=== PATIENT | female | born 1965 | race Caucasian/White ===

== ENCOUNTER 2017-09-19 13:08 | Outpatient (CLI) | payer OTHER | END 2017-09-19 13:09 | disposition home or self-care (01) | LOC: SC 13:08 | PROVIDERS: ATTEND Internal Medicine Pulmonary Disease | DX: G47.33 Obstructive sleep apnea (adult) (pediatric) (principal) | CPT/HCPCS: 99203; 99212 ==

== ENCOUNTER 2017-10-24 13:06 | Outpatient (CLI) | payer OTHER | END 2017-10-24 13:07 | disposition home or self-care (01) | LOC: SC 13:06 | PROVIDERS: ATTEND Internal Medicine Pulmonary Disease | DX: G47.33 Obstructive sleep apnea (adult) (pediatric) (principal) | CPT/HCPCS: 99212; 99213 ==

== ENCOUNTER 2017-11-24 13:02 | Outpatient (CLI) | payer OTHER | END 2017-11-24 13:03 | disposition home or self-care (01) | LOC: SC 13:02 | PROVIDERS: ATTEND Internal Medicine Pulmonary Disease | DX: G47.33 Obstructive sleep apnea (adult) (pediatric) (principal) | CPT/HCPCS: 99212; 99213 ==

== ENCOUNTER 2017-12-27 14:07 | Outpatient (CLI) | payer OTHER | END 2017-12-27 14:08 | disposition home or self-care (01) | LOC: SC 14:07 | PROVIDERS: ATTEND Internal Medicine Pulmonary Disease | DX: G47.33 Obstructive sleep apnea (adult) (pediatric) (principal) | CPT/HCPCS: 99212; 99213 ==

== ENCOUNTER 2018-06-20 15:43 | Emergency (ER) | payer OTHER ==
[2018-06-20 18:48] VITALS: BP 120/84
[2018-06-20] MEDS ORDERED: DOXYCYCLINE 100 MG TABLET PO STA (19:01)
[2018-06-20] MEDS ORDERED: predniSONE 20 MG TABLET PO STA (19:01)
--- NOTE | 2018-06-20 19:14 | ED Physician Documentation ---
History of Present Illness - Stated complaint Stated Complaint: FEVER/COUGH/SPENCER - Chief complaint Chief Complaint: General - Additonal information Additional information: 52-year-old female presents the emergency department for evaluation of sinus pressure, nasal congestion, chills, generally feeling unwell for the past several weeks. The patient had increasing symptoms and now has sinus pressure nasal congestion, postnasal drip and cough. No relieving factors. No other associated symptoms. 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 - Present Medications Home Medications: Ambulatory Orders Medication Instructions Recorded Confirmed Doxycycline Hyclate 100 mg PO BID #20 capsule 06/20/18 predniSONE [Prednisone] 40 mg PO DAILY #10 tablet 06/20/18 - Allergies Allergies/Adverse Reactions: Allergies Allergy/AdvReac Type Severity Reaction Status Date / Time amoxicillin Allergy Rash Verified 06/20/18 16:19 bupropion [From Wellbutrin] Allergy Anaphylaxis Verified 06/20/18 16:19 dihydroergotamine Allergy Anaphylaxis Verified 06/20/18 16:19 [From Migranal] sumatriptan [From Imitrex] Allergy Anaphylaxis Verified 06/20/18 16:19 zolmitriptan [From Zomig] Allergy Anaphylaxis Verified 06/20/18 16:19 - Social History Does the pt smoke?: No Smoking Status: Never smoker - Immunizations Immunizations are current?: Yes PD ED PE NORMAL - General General: Alert and oriented X 3, No acute distress - HEENT HEENT: Atraumatic, PERRL, EOMI, Ears normal - Neck Neck: Supple, no meningeal sign - Cardiac Cardiac: RRR, Strong equal pulses - Respiratory Respiratory: No respiratory distress, Clear bilaterally - Derm Derm: Normal color - Extremities Extremities: No deformity - Neuro Neuro: Alert and oriented X 3, Normal speech PD ED PE EXPANDED - HEENT HEENT: Right frontal sinus TTP, Left frontal sinus TTP, Nasal congestion. No: Right nares epsitaxis, Left nares epistaxis Results - Vitals Vitals: Vital Signs - 24 hr 06/20/18 06/20/18 16:14 18:48 Temperature 36.7 C Heart Rate 90 86 Respiratory 16 16 Rate Blood Pressure 128/84 H 120/84 H O2 Saturation 99 99 Oxygen O2 Source Room air - Labs Labs: Laboratory Tests 06/20/18 17:54 Influenza A (Rapid) Negative Influenza B (Rapid) Negative PD MEDICAL DECISION MAKING - ED course ED course: The patient's symptoms have been over 14 days, the patient will be treated with antibiotics for a bacterial sinusitis given the duration. Presently the patient appears appropriate for discharge and ongoing outpatient management. I discussed warning signs and recommended returning to the emergency department for any worsening or any concerns Departure - Departure Disposition: 01 Home, Self Care Clinical Impression: Acute sinusitis Qualifiers: Sinusitis location: other Recurrence: non-recurrent Qualified Code(s): J01.80 - Other acute sinusitis Condition: Good Instructions: ED Sinusitis Abx Tx Follow-Up: ANGELIQUE DE GUZMAN DO [Primary Care Provider] - Within 1 week Prescriptions: Doxycycline Hyclate 100 mg PO BID #20 capsule predniSONE [Prednisone] 40 mg PO DAILY #10 tablet Comments: Please return to the emergency department for any worsening or any concerns
== END 2018-06-20 19:43 | disposition home or self-care (01) ==
LOC: ED 15:43
DX: J01.80 Other acute sinusitis (principal)
CPT/HCPCS: 87275; 87276; 99283; A9270; J7512

== ENCOUNTER 2018-09-11 14:43 | Outpatient (CLI) | payer OTHER | END 2018-09-11 14:44 | disposition home or self-care (01) | LOC: SC 14:43 | PROVIDERS: ATTEND Internal Medicine Pulmonary Disease | DX: G47.33 Obstructive sleep apnea (adult) (pediatric) (principal) | CPT/HCPCS: 99212; 99213 ==

== ENCOUNTER 2018-09-15 14:10 | Emergency (ER) | payer OTHER ==
[2018-09-15] MEDS ORDERED: HYDROmorphone 1 MG/ML CARPUJECT IM STA (16:09)
[2018-09-15] MEDS ORDERED: DEXAMETHASONE 10 MG/ML VIAL PO STA (16:10)
[2018-09-15] MEDS ORDERED: diazePAM INJ 5 MG/ML SYRINGE IM STA (16:10)
[2018-09-15] MEDS ORDERED: CHERRY SYRUP 10 ML UDC PO ONE (16:10)
--- NOTE | 2018-09-15 16:14 | ED Physician Documentation ---
PD HPI BACK INJURY - Stated complaint Stated Complaint: BACK PX - History obtained from History obtained from: Patient, Family () - History of Present Illness Location: Right, Lower Similar symptoms before: Diagnosis (spondylosis with L5 nerve root impingement.) - Additional information Additional information: Patient is a 52-year-old female with severe lower back pain radiating to her right leg. It has been waxing and waning for the past week but became much worse today. It is been similar to symptoms she has had in the past. She had an MRI of her lumbar spine in the past revealing spondylosis with L5 nerve root impingement. The last time her pain was this bad was 3 or 4 years ago. It has become worse recently due to lifting and bending while at work. She denies fever, urinary incontinence, numbness or weakness. She complains of severe lower back spasms. 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 : None HEENT: Chronic sinusitis Psych: Depression, Bipolar disorder, ADD/ADHD, Obsessive compulsive disorder Musculoskeletal: Fibromyalgia, Osteoporosis, Other Derm: Herpes zoster, Rosacea, Other Other Past Medical History: spondylolithesis, skin cancer - Past Surgical History Past Surgical History: Yes General: Colonoscopy, EGD /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: section, Endometrial ablation, Dilation and currettage, Breast reduction, Breast implants, Other HEENT: Other Derm: Skin cancer surgery - Present Medications Home Medications: Ambulatory Orders Medication Instructions Recorded Confirmed ALPRAZolam [Alprazolam] 2 mg PO DAILY 09/15/18 09/15/18 Cyclobenzaprine [Flexeril] 1 tab PO QPM 09/15/18 09/15/18 Cyclobenzaprine [Flexeril] 10 mg PO TID PRN #20 tablet 09/15/18 Fluticasone [Flonase] 1 spray NS DAILY 09/15/18 09/15/18 Loratadine [Claritin] 10 mg PO DAILY 09/15/18 09/15/18 Montelukast [Singulair] 10 mg PO QPM 09/15/18 09/15/18 Oxycodone HCl/Acetaminophen 1 - 2 each PO Q6H PRN #14 tablet 09/15/18 [Percocet 5-325 mg Tablet] Sertraline [Zoloft] 100 mg PO DAILY 09/15/18 09/15/18 - Allergies Allergies/Adverse Reactions: Allergies Allergy/AdvReac Type Severity Reaction Status Date / Time amoxicillin Allergy Rash Verified 06/20/18 16:19 bupropion [From Wellbutrin] Allergy Anaphylaxis Verified 06/20/18 16:19 dihydroergotamine Allergy Anaphylaxis Verified 06/20/18 16:19 [From Migranal] sumatriptan [From Imitrex] Allergy Anaphylaxis Verified 06/20/18 16:19 zolmitriptan [From Zomig] Allergy Anaphylaxis Verified 06/20/18 16:19 - Social History Does the pt smoke?: No Smoking Status: Never smoker Does the pt drink ETOH?: Yes ETOH Use: Wine, Liquor Does the pt have substance abuse?: No - Immunizations Immunizations are current?: Yes - POLST Patient has POLST: No PD ED PE NORMAL - Vitals Vital signs reviewed: Yes (borderline hypertension) - General General: Alert and oriented X 3, Well developed/nourished, Other (Appears severely distressed.) - HEENT HEENT: Atraumatic - Neck Neck: No bony TTP, No JVD - Cardiac Cardiac: RRR - Respiratory Respiratory: No respiratory distress, Clear bilaterally - Abdomen Abdomen: Soft, Non tender - Back Back: No CVA TTP, No spinal TTP, Other (Tenderness to palpation along the right sacroiliac joint.) - Derm Derm: No rash - Extremities Extremities: No edema, No calf tenderness / cord, Other (Straight leg raise test is negative bilaterally.) - Neuro Neuro: Alert and oriented X 3, No motor deficit, No sensory deficit, Other (Deep tendon reflexes are 2+ and equal bilaterally at the patellar and Achilles tendons.) Results - Vitals Vitals: Oxygen O2 Source Room air PD MEDICAL DECISION MAKING - ED course Complexity details: reviewed old records, re-evaluated patient, considered di payton, d/w patient, d/w family ED course: The patient's presentation is most consistent with acute exacerbation of recurrent low back pain, with right sided sciatica. Her presentation does not suggest epidural abscess, spinal stenosis, or cauda equina syndrome. Treatment in the emergency department included administration of hydromorphone 1 mg IM, diazepam 5 mg IM, and dexamethasone 10 mg orally. Her symptoms markedly improved with the above treatment. She is being discharged with prescriptions for Flexeril and for Percocet, 14 tablets. I discussed with her and her symptomatic treatment, outpatient follow-up, as well as potentially worrisome signs or symptoms that should prompt reevaluation in the emergency department. Departure - Departure Disposition: 01 Home, Self Care Clinical Impression: Acute low back pain Qualifiers: Back pain laterality: right Sciatica presence: with sciatica Sciatica laterality: sciatica of right side Qualified Code(s): M54.41 - Lumbago with sciatica, right side Condition: Stable Instructions: ED Sciatica Follow-Up: ANGELIQUE DE GUZMAN DO [Primary Care Provider] - Prescriptions: Cyclobenzaprine [Flexeril] 10 mg PO TID PRN #20 tablet PRN Reason: Spasms Oxycodone HCl/Acetaminophen [Percocet 5-325 mg Tablet] 1 - 2 each PO Q6H PRN #14 tablet PRN Reason: pain Comments: Apply ice pack to your lower back intermittently for the next 3 days. You can use ibuprofen, up to 800 mg 3 times daily for its anti-inflammatory effect. You can use Percocet as prescribed if needed for pain. You can use Flexeril as prescribed as needed for muscle spasms. Follow-up with your primary physician within 1 to 2 weeks. Call to schedule an appointment. Return to the emergency department if you develop increasing pain, urinary incontinence, or otherwise worsening symptoms. Discharge Date/Time: 09/15/18 17:18
[2018-09-15 17:13] VITALS: BP 127/82
== END 2018-09-15 17:18 | disposition home or self-care (01) ==
LOC: ED 14:10
DX: M54.41 Lumbago with sciatica, right side (principal); M54.2 Cervicalgia
CPT/HCPCS: 96372; 99283; A9270; J1170

== ENCOUNTER 2018-09-17 16:25 | Outpatient (CLI) | payer OTHER | END 2018-09-17 16:26 | disposition critical access hospital (66) | LOC: EMS 16:25 | PROVIDERS: ATTEND Surgery | DX: M54.5 Low back pain (principal) | CPT/HCPCS: A0425; A0427 ==

== ENCOUNTER 2018-09-17 16:52 | Emergency (ER) | payer OTHER ==
--- NOTE | 2018-09-17 17:04 | ED Physician Documentation ---
PD HPI BACK PAIN - Stated complaint Stated Complaint: BACK PX - History obtained from History obtained from: Patient, EMS - History of Present Illness Timing - onset: Yesterday (has had some increased back pain for 2 weeks, having new job that involves lifting up to 50 lbs. But started with severe pain and spasms yesterday, worse today. Has had severe spasms in the past at times.) Timing - duration: Days Timing - details: Gradual onset, Still present, Waxing and waning (severe spasms at times.) Location: Lower, Right, Left Quality: Pain, Spasm. No: Tearing, Aching Associated symptoms: Other (pain down right leg at times, with spasms.). No: Fever, Weakness, Numbness Worsened by: Movement, Twisting Contributing factors: Lifting. No: Trauma Similar symptoms before: Diagnosis (spondylolithesis at lower lumbar, with intermittent spasms and pains. Had been to pain clinics in the past. 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 : None HEENT: Chronic sinusitis Psych: Depression, Bipolar disorder, ADD/ADHD, Obsessive compulsive disorder Musculoskeletal: Fibromyalgia, Osteoporosis, Other Derm: Herpes zoster, Rosacea, Other - Past Surgical History Past Surgical History: Yes General: Colonoscopy, 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, Endometrial ablation, Dilation and currettage, Breast reduction, Breast implants, Other HEENT: Other Derm: Skin cancer surgery - Present Medications Home Medications: Ambulatory Orders Medication Instructions Recorded Confirmed ALPRAZolam [Alprazolam] 2 mg PO DAILY 09/15/18 09/15/18 Cyclobenzaprine [Flexeril] 1 tab PO QPM 09/15/18 09/15/18 Cyclobenzaprine [Flexeril] 10 mg PO TID PRN #20 tablet 09/15/18 Fluticasone [Flonase] 1 spray NS DAILY 09/15/18 09/15/18 Loratadine [Claritin] 10 mg PO DAILY 09/15/18 09/15/18 Montelukast [Singulair] 10 mg PO QPM 09/15/18 09/15/18 Oxycodone HCl/Acetaminophen 1 - 2 each PO Q6H PRN #14 tablet 09/15/18 [Percocet 5-325 mg Tablet] Sertraline [Zoloft] 100 mg PO DAILY 09/15/18 09/15/18 Oxycodone HCl/Acetaminophen 1 - 2 each PO Q6H PRN #14 tablet 09/17/18 [Percocet 5-325 mg Tablet] dexAMETHasone [Decadron] 4 mg PO DAILY #5 tablet 09/17/18 diazePAM [Valium] 5 - 10 mg PO TID PRN #25 tablet 09/17/18 - Allergies Allergies/Adverse Reactions: Allergies Allergy/AdvReac Type Severity Reaction Status Date / Time amoxicillin Allergy Rash Verified 06/20/18 16:19 bupropion [From Wellbutrin] Allergy Anaphylaxis Verified 06/20/18 16:19 dihydroergotamine Allergy Anaphylaxis Verified 06/20/18 16:19 [From Migranal] sumatriptan [From Imitrex] Allergy Anaphylaxis Verified 06/20/18 16:19 zolmitriptan [From Zomig] Allergy Anaphylaxis Verified 06/20/18 16:19 - Social History Does the pt smoke?: No Smoking Status: Never smoker Does the pt drink ETOH?: Yes Does the pt have substance abuse?: No - Immunizations Immunizations are current?: Yes - POLST Patient has POLST: No PD ED PE NORMAL - Vitals Vital signs reviewed: Yes - General General: Alert and oriented X 3, Well developed/nourished, Other (in pain and having severe pain at times with spasms occurring. ) - HEENT HEENT: Atraumatic - Neck Neck: Supple, no meningeal sign, No adenopathy - Cardiac Cardiac: RRR, No murmur - Respiratory Respiratory: Clear bilaterally - Abdomen Abdomen: Soft, Non tender - Back Back: No CVA TTP - Derm Derm: Normal color, Warm and dry - Extremities Extremities: No edema, No calf tenderness / cord - Neuro Neuro: No motor deficit, No sensory deficit, Other (normal reflexes at knees.) Results - Vitals Vitals: Vital Signs - 24 hr 09/17/18 09/17/18 09/17/18 17:14 17:17 18:40 Temperature 36.6 C 36.5 C Heart Rate 84 85 74 Respiratory 18 18 20 Rate Blood Pressure 151/90 H 151/90 H 104/86 H O2 Saturation 98 99 99 09/17/18 09/17/18 21:14 22:08 Temperature Heart Rate 78 88 Respiratory 17 17 Rate Blood Pressure 119/67 146/78 H O2 Saturation 99 99 Oxygen O2 Source Room air PD MEDICAL DECISION MAKING - ED course Complexity details: re-evaluated patient (improved enough with meds. ), c onsidered differential (no red flags per se to suggest need for testing, but is having significant spasms. ), d/w patient Departure - Departure Disposition: 01 Home, Self Care Clinical Impression: Muscle spasm of back Acute low back pain Qualifiers: Back pain laterality: unspecified Sciatica presence: without sciatica Qualified Code(s): M54.5 - Low back pain Condition: Stable Record reviewed to determine appropriate education?: Yes Instructions: ED Low Back Pain Injury, ED Spasm Back No Trauma Prescriptions: dexAMETHasone [Decadron] 4 mg PO DAILY #5 tablet diazePAM [Valium] 5 - 10 mg PO TID PRN #25 tablet PRN Reason: Spasms Oxycodone HCl/Acetaminophen [Percocet 5-325 mg Tablet] 1 - 2 each PO Q6H PRN #14 tablet PRN Reason: pain Comments: Continue some anti-inflammatories such as ibuprofen or naproxen twice daily for pain and inflammation. Add Decadron steroid for inflammation as well. Change muscle relaxant to diazepam 1 to 2 tablets 3 times a day for spasms and see if that is more effective. Use Tylenol or Percocet as needed for pain. Heat and gentle stretching for the back. Recheck if not improving over the next few days and return as needed. Discharge Date/Time: 09/17/18 22:12
[2018-09-17] MEDS ORDERED: SODIUM CHLORIDE 0.9% 1,000 ML IV ONE (17:31)
[2018-09-17] MEDS ORDERED: diazePAM INJ 5 MG/ML SYRINGE IVP STA ×2 (17:32→18:46)
[2018-09-17] MEDS ORDERED: DEXAMETHASONE 10 MG/ML VIAL IVP STA (17:32)
[2018-09-17] MEDS ORDERED: HYDROmorphone 2 MG/ML VIAL IVP STA ×2 (17:32→18:46)
[2018-09-17] MEDS ORDERED: KETOROLAC 30 MG/ML VIAL IVP STA (17:32)
[2018-09-17] MEDS ORDERED: ACETAMINOPHEN 1,000 MG/100 ML 100 ML IV STA (18:48)
[2018-09-17 22:10] VITALS: BP 146/78
== END 2018-09-17 22:12 | disposition home or self-care (01) ==
LOC: EDUNIT# → EDBD → ED 16:52
DX: M62.830 Muscle spasm of back (principal); M54.5 Low back pain
CPT/HCPCS: 96361; 96365; 96366; 96375; 96376; 99283; 99284; J0131; J1170

== ENCOUNTER 2018-12-09 07:42 | Emergency (ER) | payer OTHER ==
[2018-12-09] MEDS ORDERED: CHERRY SYRUP 10 ML UDC PO ONE (08:16)
[2018-12-09] MEDS ORDERED: KETOROLAC 60 MG/2 ML VIAL IM STA (08:16)
[2018-12-09] MEDS ORDERED: oxyCODONE 5 MG TABLET PO STA (08:16)
[2018-12-09] MEDS ORDERED: DEXAMETHASONE 10 MG/ML VIAL PO STA (08:16)
[2018-12-09] MEDS ORDERED: diazePAM INJ 5 MG/ML SYRINGE IM STA (08:17)
--- NOTE | 2018-12-09 08:28 | ED Physician Documentation ---
History of Present Illness - Stated complaint Stated Complaint: NECK/BACK PX - Chief complaint Chief Complaint: Ext Problem - History obtained from History obtained from: Patient, Family - History of Present Illness Timing: How many weeks ago (several) Pain level max: 9 Pain level now: 9 - Additonal information Additional information: 53-year-old female with chronic neck and back pain. She presents today with left-sided neck and shoulder pain. States it feels like spasms. Valium has helped in the past. She took Flexeril without relief. She was supposed to have spinal injections 2 weeks ago, but was unable to because she was on antibiotics. Has not rescheduled this yet. Worse with movement, better with rest. No fevers. No IV drug use. No trauma. 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 : None HEENT: Chronic sinusitis Psych: Depression, Bipolar disorder, ADD/ADHD, Obsessive compulsive disorder Musculoskeletal: Fibromyalgia, Osteoporosis, Other Derm: Herpes zoster, Rosacea, Other - Past Surgical History Past Surgical History: Yes General: Colonoscopy, 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, Endometrial ablation, Dilation and currettage, Breast reduction, Breast implants, Other HEENT: Other Derm: Skin cancer surgery - Present Medications Home Medications: Ambulatory Orders Medication Instructions Recorded Confirmed ALPRAZolam [Alprazolam] 2 mg PO DAILY 09/15/18 09/15/18 Cyclobenzaprine [Flexeril] 1 tab PO QPM 09/15/18 09/15/18 Cyclobenzaprine [Flexeril] 10 mg PO TID PRN #20 tablet 09/15/18 Fluticasone [Flonase] 1 spray NS DAILY 09/15/18 09/15/18 Loratadine [Claritin] 10 mg PO DAILY 09/15/18 09/15/18 Montelukast [Singulair] 10 mg PO QPM 09/15/18 09/15/18 Hydrocodone/Acetaminophen [[place] 1 each PO 12/09/18 12/09/18 5-325 Tablet] Methylprednisolone [Medrol] 4 mg PO DAILY #1 tab.ds.pk 12/09/18 Oxycodone HCl/Acetaminophen 1 - 2 each PO Q6H PRN #14 tablet 12/09/18 [Percocet 5-325 mg Tablet] diazePAM [Valium] 5 - 10 mg PO TID PRN #20 tablet 12/09/18 - Allergies Allergies/Adverse Reactions: Allergies Allergy/AdvReac Type Severity Reaction Status Date / Time amoxicillin Allergy Rash Verified 12/09/18 07:59 bupropion [From Wellbutrin] Allergy Anaphylaxis Verified 12/09/18 07:59 dihydroergotamine Allergy Anaphylaxis Verified 12/09/18 07:59 [From Migranal] sumatriptan [From Imitrex] Allergy Anaphylaxis Verified 12/09/18 07:59 zolmitriptan [From Zomig] Allergy Anaphylaxis Verified 12/09/18 07:59 - Social History Does the pt smoke?: No Smoking Status: Never smoker Does the pt drink ETOH?: Yes Does the pt have substance abuse?: No - Immunizations Immunizations are current?: Yes - POLST Patient has POLST: No PD ED PE NORMAL - Vitals Vital signs reviewed: Yes - General General: Alert and oriented X 3, Well developed/nourished, Other (Appears in pain) - HEENT HEENT: PERRL, Moist mucous membranes - Neck Neck: Supple, no meningeal sign, No bony TTP - Cardiac Cardiac: RRR, Strong equal pulses - Respiratory Respiratory: No respiratory distress, Clear bilaterally - Abdomen Abdomen: Soft, Non tender, Non distended - Back Back: No spinal TTP - Derm Derm: Warm and dry - Extremities Extremities: No edema, Other (Tender to palpation over the left trapezial ridge. Spasm present. Full range of motion of the left shoulder. No Evidence of rotator cuff injury. No evidence of fracture.) - Neuro Neuro: Alert and oriented X 3 - Psych Psych: Normal mood, Normal affect Results - Vitals Vitals: Vital Signs - 24 hr 12/09/18 12/09/18 07:58 08:56 Temperature 36.8 C 36 C L Heart Rate 87 84 Respiratory 20 20 Rate Blood Pressure 132/75 H 129/67 O2 Saturation 99 98 Oxygen O2 Source Room air PD MEDICAL DECISION MAKING - ED course Complexity details: re-evaluated patient, considered differential, d/w patient, d/w family ED course: Patient with a left-sided neck and shoulder spasm. Has history of similar in the past. She was supposed to receive a spinal injection 2 weeks ago, but this was postponed due to antibiotic usage. Has had Valium and Percocet in the past which have helped. Steroids of also helped. Will prescribe this for her. She improved after IM Dilaudid, Valium, Toradol in the emergency department. She was also given dexamethasone here. Patient and family counseled regarding signs and symptoms for which I believe and urgent re-evaluation would be necessary. Patient with good understanding of and agreement to plan and is comfortable going home at this time This document was made in part using voice recognition software. While efforts are made to proofread this document, sound alike and grammatical errors may occur. Departure - Departure Disposition: 01 Home, Self Care Clinical Impression: Back spasm Condition: Good Instructions: ED Spasm Back No Trauma Follow-Up: ANGELIQUE DE GUZMAN DO [Primary Care Provider] - Within 3 Days Prescriptions: diazePAM [Valium] 5 - 10 mg PO TID PRN #20 tablet PRN Reason: Spasms Methylprednisolone [Medrol] 4 mg PO DAILY #1 tab.ds.pk Oxycodone HCl/Acetaminophen [Percocet 5-325 mg Tablet] 1 - 2 each PO Q6H PRN #14 tablet PRN Reason: pain Comments: This should improve over the next 2-3 days. Please follow-up with your doctor for further care. Return if you worsen. Do not drive or operate heavy machinery while taking the Percocet or Valium. Do not drink alcohol or drive while on narcotic pain medicine. Note that many narcotic pain relievers also contain tylenol/acetaminophen. Please ensure that your total dose of acetaminophen from all sources does not exceed 3 grams (3000mg) per day. You may constipated on this medication, take a stool softener such as "Colace" twice a day while you are on it. Also recommend a [id number] laxative such as senna or MiraLAX any day that you do not have a bowel movement. If you received narcotic pain medication in the emergency department, do not drive or operate machinery for the next 24 hours. Discharge Date/Time: 12/09/18 09:35
[2018-12-09 08:57] VITALS: BP 129/67
[2018-12-09] MEDS ORDERED: HYDROmorphone 1 MG/ML CARPUJECT IM STA (08:58)
[2018-12-09] MEDS ORDERED: diazePAM 5 MG TABLET PO STA (09:07)
== END 2018-12-09 09:35 | disposition home or self-care (01) ==
LOC: ED 07:42
DX: M62.830 Muscle spasm of back (principal); M62.838 Other muscle spasm; M25.512 Pain in left shoulder; M54.2 Cervicalgia; G89.29 Other chronic pain
CPT/HCPCS: 96372; 99283; 99284; A9270; J1170

== ENCOUNTER 2019-02-20 11:22 | Outpatient (CLI) | payer OTHER | END 2019-02-20 11:23 | disposition short-term general hospital (02) | LOC: EMS 11:22 | PROVIDERS: ATTEND Surgery | DX: R07.89 Other chest pain (principal); R10.9 Unspecified abdominal pain; R11.0 Nausea; R06.02 Shortness of breath | CPT/HCPCS: A0425; A0427 ==